=== PATIENT | male | born 1975 | race Two or more races ===

== ENCOUNTER 2019-12-13 08:52 | Emergency (ER) | payer SELFPAY ==
[~2019-12-13] VITALS: Ht 170.2 cm; Wt 68.0 kg
[2019-12-13 09:03] VITALS: BP 149/78
[2019-12-13] MEDS ORDERED: PRED20TA PO (09:21)
[2019-12-13] MEDS ORDERED: TRIA15OI9 TP (09:21)
--- NOTE | 2019-12-13 09:22 | PHYS DOC ---
General Adult EDM: Chief Complaint: SKIN PROBLEM HPI: HPI: Patient is a 44 year old presented to ER today for evaluation of itchy rash all over his body for 2 days. Patient works as a business assistant, he has been cutting grass and suspects that the poison dorothy got on his body. Patient denies any trouble breathing, no trouble swallowing, no chest pain, no cough, no fever. Review of Systems: Review of Systems: Constitutional: Denies fever or chills. [] Eyes: Denies change in visual acuity. [] HENT: Denies nasal congestion or sore throat. [] Respiratory: Denies cough or shortness of breath. [] Cardiovascular: Denies chest pain or edema. [] GI: Denies abdominal pain, nausea, vomiting, bloody stools or diarrhea. [] : Denies dysuria. [] Musculoskeletal: Denies back pain or joint pain. [] Integument: positive for itching rash. Neurologic: Denies headache, focal weakness or sensory changes. [] Endocrine: Denies polyuria or polydipsia. [] Lymphatic: Denies swollen glands. [] Psychiatric: Denies depression or anxiety. [] Heart Score: Risk Factors: Risk Factors: DM, Current or recent (<one month) smoker, HTN, HLP, family history of CAD, obesity. Risk Scores: Score 0 - 3: 2.5% MACE over next 6 weeks - Discharge Home Score 4 - 6: 20.3% MACE over next 6 weeks - Admit for Clinical Observation Score 7 - 10: 72.7% MACE over next 6 weeks - Early Invasive Strategies Current Medications: Current Medications Medications (Trade) Dose Ordered Sig/[facility] Start Time Stop Time Status Last Admin Dose Admin Methylprednisolone Sodium Succinate (SOLU-Medrol 125MG VIAL) 125 mg 1X ONCE 12/13/19 09:45 12/13/19 09:46 Allergies: Allergies: Allergies Coded Allergies Type Severity Reaction Last Updated Verified No Known Drug Allergies 12/13/19 No Physical Exam: PE: Constitutional: Well developed, well nourished, no acute distress, non-toxic appearance. [] HENT: Normocephalic, atraumatic, bilateral external ears normal, oropharynx moist, no oral exudates, nose normal. [] Eyes: PERRLA, EOMI, conjunctiva normal, no discharge. [] Neck: Normal range of motion, no tenderness, supple, no stridor. [] Cardiovascular:Heart rate regular rhythm, no murmur [] Lungs & Thorax: Bilateral breath sounds clear to auscultation [] Abdomen: Bowel sounds normal, soft, no tenderness, no masses, no pulsatile masses. [] Skin: Warm, dry,diffuse macularpapular rash on neck, face, trunk and extremities Back: No tenderness, no CVA tenderness. [] Extremities: No tenderness, no cyanosis, no clubbing, ROM intact, no edema. [] Neurologic: Alert and oriented X 3, normal motor function, normal sensory funct ion, no focal deficits noted. [] Psychologic: Affect normal, judgement normal, mood normal. [] EKG: EKG: [] Radiology/Procedures: Radiology/Procedures: [] Course & Med Decision Making: Course & Med Decision Making Pertinent Labs and Imaging studies reviewed. (See chart for details) [] Dragon Disclaimer: Dragon Disclaimer: This electronic medical record was generated, in whole or in part, using a voice recognition dictation system. Departure Departure Impression: Primary Impression: Poison dorothy dermatitis Disposition: HOME, SELF-CARE Condition: STABLE Referrals: NO PCP (PCP) follow up with your doctor as needed Patient Instructions: Poison Dorothy Scripts Triamcinolone Acetonide (TRIAMCINOLONE ACETONIDE 0.5% OINT) 15 Gm Oint...g. 1 BEV TP PRN TID PRN for rash, #30 GM 0 Refills apply to affected area(s) Prov: ANGEL CANCINO DO 12/13/19 Prednisone (PREDNISONE) 20 Mg Tablet 2 TAB PO DAILY for 7 Days, #14 TAB Prov: ANGEL CANCINO DO 12/13/19 Justicifation of Admission Dx: Justifications for Admission: Justification of Admission Dx: N/A ANGEL CANCINO DO Dec 13, 2019 09:22
[2019-12-13] MEDS ORDERED: methylPREDNISolone SOD SUCC PF 125 MG/2 ML VIAL. IM ONE (09:45)
== END 2019-12-13 09:58 | disposition home or self-care (01) ==
LOC: ER 08:52
DX: L23.7 Allergic contact dermatitis due to plants, except food (principal)
CPT/HCPCS: 96372; 99283; J2930

== ENCOUNTER 2021-04-29 17:37 | Emergency (ER) | payer SELFPAY ==
[~2021-04-29 17:37] MED LIST: PRED20TA PO; TRIA15OI9 TP
== END 2021-04-29 23:14 | disposition left against medical advice (07) ==
LOC: ER 17:37
DX: L08.89 Other specified local infections of the skin and subcutaneous tissue (principal); Z53.21 Procedure and treatment not carried out due to patient leaving prior to being seen by health care provider